=== PATIENT | male | born 1955 | race African-American/Black ===

== ENCOUNTER → 2020-12-10 | Outpatient (CLI) | payer MEDICARE, OTHER ==
--- NOTE | 2020-12-10 08:43 | RADIOLOGY REPORT (SQ) ---
EXAM DESCRIPTION: CT CHEST WITHOUT IMAGES COMPLETED DATE/TIME: 12/10/2020 7:31 am REASON FOR STUDY: J44.9 CHRONIC OBSTRUCTIVE PULMONARY DISEASE, UNSPECIFIED M34.9 SYSTEMIC SCLEROSIS , UNSPECIFIED J44.9 CHRONIC OBSTRUCTIVE PULMONARY DISEASE, UNSPECIFIED I10 ESSENTIAL (PRIMARY) HYPE RTENSION COMPARISON: Chest x-ray dated 02/25/2014 TECHNIQUE: CT scan performed of the chest without intravenous contrast. Images reviewed with lung, soft tissue and bone windows. Reconstructed coronal and sagittal MPR images reviewed. All images st ored on PACS. All CT scanners at this facility use dose modulation, iterative reconstruction, and/or weight based d osing when appropriate to reduce radiation dose to as low as reasonably achievable (ALARA). [facility]: Dose Right [facility]: CareDose [facility]: Dose Right [facility]: Teradose 4D [facility]: [employer] RADIATION DOSE: CT Rad equipment meets quality standard of care and radiation dose reduction techniq ues were employed. CTDIvol: 17.8 mGy. DLP: 684 mGy-cm. mGy. LIMITATIONS: No technical limitations. FINDINGS: LUNGS AND PLEURA: There is a small subpleural nodule in the periphery of the right upper l obe. This measures 3.8 mm in diameter. This is nonspecific most likely scar although there are no o ld films available for comparison. Please see below for recommended follow-up. There is subpleural airspace disease in the superior segment of the right lower lobe. With a focal 7.9 mm ground-glass o pacity best demonstrated on series 4, image 41. HILAR AND MEDIASTINAL STRUCTURES: No identified masses or abnormal nodes. No obvious aneurysm. HEART AND VASCULAR STRUCTURES: No pericardial effusion. There is dilatation of the ascending thoraci c aorta. This measures up to 5.3 mm in greatest diameter. UPPER ABDOMEN: No significant findings. Limited exam. THYROID AND OTHER SOFT TISSUES: No masses. No adenopathy. BONES: T3 compression fracture. Age is indeterminate. There is approximately 20 to 30% loss of heig ht. No retropulsion. HARDWARE: None in the chest. OTHER: No other significant findings. IMPRESSION: 1. Aneurysmal dilatation of the ascending aorta. Largest diameter is 5.3 mm. Recommen d vascular surgery consultation. 2. 3.8 mm subpleural nodule in the periphery the right upper lobe most likely scar. Please see belo w for recommended follow-up. 3. Subpleural airspace disease in the superior segment of the right lower lobe with a focal 7.9 mm g round-glass opacity. COMMENT: FLEISCHNER CRITERIA FOR FOLLOW-UP OF PULMONARY NODULES Incidentally detected new nodules in persons 35 or older. HIGH RISK: History of smoking or other known risk factors. <6 mm single solid nodule: LOW RISK: no routine followup. HIGH RISK: optional CT 12 mo. Fleischner Criteria for Ground Glass Nodules: >6 mm ground glass single nodule: CT 6-12 mo, then CT every 2 yr until 5 yr TECHNICAL DOCUMENTATION: JOB ID: [id number] Quality ID # [id number]: Final reports with documentation of one or more dose reduction techniques (e.g., Au tomated exposure control, adjustment of the mA and/or kV according to patient size, use of iterative reconstruction technique) 2010 [employer]- All Rights Reserved Reading location - IP/workstation name: [email or web address]
--- NOTE | 2020-12-10 12:31 | RADIOLOGY REPORT (SQ) ---
EXAM DESCRIPTION: BARIUM SWALLOW ESOPHAGUS IMAGES COMPLETED DATE/TIME: 12/10/2020 8:21 am REASON FOR STUDY: R13.10 DYSPHAGIA M34.9 SYSTEMIC SCLEROSIS, UNSPECIFIED J44.9 CHRONIC OBSTRUCTIVE PULMONARY DISEASE, UNSPECIFIED I10 ESSENTIAL (PRIMARY) HYPERTENSION COMPARISON: None. TECHNIQUE: Under fluoroscopic guidance, patient ingested effervescent granules followed by thick and thin barium. Fluoroscopic spot images and routine radiographic images acquired and stored on PACS. 12 MM BARIUM TABLET GIVEN: Yes. No significant delay in passage. LIMITATIONS: None. FLUOROSCOPY TIME: FLUORO TIME: 2.1 MINUTES OF FLUOROSCOPY WAS USED. 13 images saved to PACS. FINDINGS: NEUROMUSCULAR COORDINATION OF SWALLOW: Normal. No aspiration. ESOPHAGEAL MOTILITY: Mild esophageal dysmotility. No esophageal spasm. ESOPHAGEAL MUCOSA: Normal mucosa without masses or ulceration. GASTRO-ESOPHAGEAL JUNCTION: Mild gastroesophageal reflux. 12 mm barium tab passed through the GE lotus ction without delay. NON-GI TRACT STRUCTURES: No significant finding. OTHER: No other significant finding. IMPRESSION: MILD ESOPHAGEAL DYSMOTILITY AND GASTROESOPHAGEAL REFLUX OTHERWISE NORMAL DOUBLE CONTRAST BARIUM SWALLOW. COMMENT: Quality ID [id number]: Final reports for procedures using fluoroscopy that document radiation exp osure indices, or exposure time and number of fluorographic images (if radiation exposure indices are not available) TECHNICAL DOCUMENTATION: JOB ID: [id number] 2010 [employer]- All Rights Reserved Reading location - IP/workstation name: [email or web address]
--- NOTE | 2020-12-10 20:20 | XCELERA REPORT ---
[address] [address] Transthoracic Echocardiogram Report Name: JOVANNY VILLALBA Age: 65 yrs Gender: Male : 1955 Patient Status: Outpatient Patient Location: RAD Study Date: 12/10/2020 08:41 AM Height: 67 in Weight: 209 lb BSA: 2.1 m2 Procedure: A complete two-dimensional transthoracic echocardiogram was performed (2D, M-mode, spectral and color flow Doppler). The study was technically difficult with many images being suboptimal in quality. Reason For Study: HTN Ordering Physician: MADAY BOOKER Performed By: Otilia Williamson Interpretation Summary FINDINGS: technically difficult. LEFT VENTRICLE: LV Systolic function: LVEF is felt to be within normal limits. Best estimate is approximately LVEF is 60 to 65%. LV Diastolic Function: Grade II diastolic dysfunction noted. Wall motion: not all wall segment were well visualised. Regional wall motion cannot be accurately commented upon. Left ventricular chamber size: is within normal limit. Left ventricular wall thickness: is increased indicative of Mild LVH. RIGHT VENTRICLE: RV systolic function: is felt to be within normal limit. Right Ventricle Size: is within normal limits. LEFT ATRIUM size: is mildly dilated. RIGHT ATRIUM size: is within normal limit. INTER ATRIAL SEPTUM: color Doppler flow noted across the inter atrial septum consistent with a small PFO versus small ASD. Possible artefact is also the differential diagnosis. AORTIC ROOT: seems to be within normal limits. ASCENDING AORTA: is not well visualized. INFERIOR VENA CAVA: was not well visualized. VALVES: MITRAL VALVE: Leaflets are mildly thickened. Mobility seems to be within normal limits. Mitral Regurgitation: Trace mitral regurgitation is noted. Mitral Stenosis: No mitral stenosis noted. Mitral valve prolapse: none noted. AORTIC VALVE: all leaflets not well visualised but with mild thickening and adequate excursion. Aortic stenosis: No aortic stenosis noted. Aortic regurgitation: mild aortic incompetence noted. TRICUSPID VALVE: mobility and structures within normal limit. Tricuspid stenosis: no tricuspid stenosis noted. Tricuspid regurgitation: Trace tricuspid regurgitation noted. Estimated RVS : cannot be accurately commented upon but possibly at upper limit of normal. PULMONARY VALVE: was not well visualized but no significant abnormalities suspected. Pulmonary stenosis: no pulmonary stenosis noted. Pulmonary regurgitation: no significant pulmonary regurgitation noted. MASSES AND THROMBUS: No definite intracardiac thrombus or masses are noted. PERICARDIUM: No pericardial effusion was noted. IMPRESSION: 1. Normal LVEF. 2. Mild LVH noted. 3. Grade II Diastolic Dysfunction noted. 4. Mild aortic regurgitation noted. 5. LA is mildly dilated. 6. Probable PFO versus small ASD versus possible color doppler artefact. Recommend agitated saline study. MMode/2D Measurements & Calculations RVDd: 2.2 cm LVIDd: 3.7 cm FS: 34.5 % Ao root diam: 2.5 cm IVSd: 1.2 cm LVIDs: 2.4 cm EDV(Teich): 58.6 ml Ao root area: 4.7 cm2 LVPWd: 0.83 cm ESV(Teich): 20.9 ml EF(Teich): 64.4 % Doppler Measurements & Calculations MV E max juanis: MV dec slope: Ao V2 max: LV V1 max P.2 cm/sec 227.5 cm/sec2 141.5 cm/sec 8.4 mmHg MV A max juanis: MV dec time: 0.26 sec Ao max PG: LV V1 max: 85.7 cm/sec 8.0 mmHg 144.5 cm/sec MV E/A: 0.70 PA V2 max: 82.4 cm/sec PA max P.7 mmHg : MADAY BOOKER Shyamal
== END ==
LOC: RAD 07:55
PROVIDERS: ATTEND Internal Medicine Rheumatology
DX: M34.9 Systemic sclerosis, unspecified (principal); R06.00 Dyspnea, unspecified; K21.9 Gastro-esophageal reflux disease without esophagitis; R13.10 Dysphagia, unspecified; I10 Essential (primary) hypertension; J44.9 Chronic obstructive pulmonary disease, unspecified
CPT/HCPCS: 71250; 74220; 93306